=== PATIENT | male | born 1975 | race Caucasian/White ===

== ENCOUNTER 2019-07-27 13:10 | Emergency (ER) | payer MEDICAID ==
[~2019-07-27] VITALS: Ht 175.3 cm; Wt 99.8 kg
[2019-07-27] MEDS ORDERED: VENTOLIN HFA18 GM INH ×2 (13:23→13:34)
[2019-07-27 13:33] VITALS: BP 153/104
--- NOTE | 2019-07-27 13:33 | Emergency Room Report ---
History of Present Illness General Chief Complaint: Upper Respiratory Illness Source: Patient Present Illness HPI 44-year-old male with history of heavy tobacco smoke and asthma here with his friend complaining of worsening asthma, and 10 days of sinus pressure, sore throat. Patient recently moved to [place] from [place], and his friend is translating for me. Patient is requesting a refill of his Ventolin HFA. Also upon arrival has high blood pressure however denies chest pain, shortness of breath, dizziness, headache, palpitation, blurry vision. Reports that he has been told before that he has high blood pressure however has never taken medication for blood pressure. Denies any alcohol intake. Denies drug use. I educated patient that he needs to follow-up with her primary care provider, gave him a list of free clinics to go to establish a primary care physician in order to have complete blood work as well as starting medication for high blood pressure. Denies fever and chills at this time. Denies abdominal pain, nausea vomiting. Denies calf tenderness, pleuritic chest pain. Allergies: Coded Allergies: No Known Allergies (Unverified , 07/27/19) Patient History Past Medical History: see triage record Past Surgical History: none Pertinent Family History: none Social History: Reports: smoking - daily tobacco use Immunizations: UTD Reviewed Nursing Documentation: PMH: Agreed; PSxH: Agreed Nursing Documentation-PMH Past Medical History: No History, Except For Hx Hypertension: Yes Hx Asthma: Yes Review of Systems All Other Systems: negative except mentioned in HPI Physical Exam Vital Signs Date Time Temp Pulse Resp B/P (MAP) Pulse Ox O2 Delivery O2 Flow Rate FiO2 07/27/19 13:13 97.9 102 20 153/104 (120) 97 Room Air Sp02 EP Interpretation: reviewed, normal General Appearance: no apparent distress, alert, GCS 15, non-toxic Head: normocephalic, atraumatic Eyes: bilateral eye normal inspection, bilateral eye PERRL ENT: nasal congestion, tonsillar swelling, pharyngeal erythema, other - Frontal sinuses tender to palpation Neck: full range of motion, no meningismus, supple/symm/no masses Respiratory: chest non-tender, lungs clear, normal breath sounds, no rhonchi, no retraction, no wheezing, speaking full sentences Cardiovascular #1: regular rate, rhythm, no edema, no murmur, normal capillary refill Gastrointestinal: normal bowel sounds, non tender, soft, non-distended, no guarding, no rebound Rectal: deferred Genitourinary: no CVA tenderness Musculoskeletal: back normal, normal range of motion, no calf tenderness, pelvis stable, gait/station normal, non-tender Neurologic: alert, motor strength/tone normal, oriented x3, sensory intact, responsive, speech normal Psychiatric: judgement/insight normal, memory normal, mood/affect normal, no suicidal/homicidal ideation Skin: no rash Lymphatic: no adenopathy Medical Decision Making PA Attestation Diagnosis and treatment plans were reviewed and discussed with my supervising physician Dr. Pete Diagnostic Impression: Primary Impression: Asthma Additional Impressions: Sinusitis HTN (hypertension) ER Course 44-year-old male with history of heavy tobacco smoke and asthma here with his friend complaining of worsening asthma, and 10 days of sinus pressure, sore throat. Patient recently moved to [place] from [place], and his friend is translating for me. Patient is requesting a refill of his Ventolin HFA. Also upon arrival has high blood pressure however denies chest pain, shortness of breath, dizziness, headache, palpitation, blurry vision. Reports that he has been told before that he has high blood pressure however has never taken medication for blood pressure. Denies any alcohol intake. Denies drug use. I educated patient that he needs to follow-up with her primary care provider, gave him a list of free clinics to go to establish a primary care physician in order to have complete blood work as well as starting medication for high blood pressure. Denies fever and chills at this time. Denies abdominal pain, nausea vomiting. Denies calf tenderness, pleuritic chest pain. Ddx considered but are not limited to: strep pharyngitis, URI, tonsillitis, peritonsillar abscess, influneza, sinusitis, asthma exacerbation, bronchitis Vital signs: are WNL, pt. is afebrile H&PE are most consistent with: Asthma, sinusitis, incidental finding of hypertension ORDERS: Flonase, albuterol inhaler, Augmentin, no x-rays needed at this time patient is not wheezing and lungs are clear to auscultation denies any chest pain ED INTERVENTIONS: None required at this time. DISCHARGE: At this time pt. is stable for d/c to home. Will provide printed patient care instructions, and any necessary prescriptions. Care plan and follow up instructions have been discussed with the patient prior to discharge. I received a call from pharmacy that no inhalers are covered by patient's insurance and patient is a prior authorization. I informed the pharmacist that patient specifically asked for Ventolin HFA and also patient to pay for the prescription as he is an asthmatic and he needs his inhaler. Also he is a heavy tobacco smoker. I also informed the pharmacist that this is an emergency department and we do not request prior authorizations. Patient to follow-up with primary care provider for further assessment of hypertension and if worsening symptoms return to the emergency room. Patient's friend translated all of my concerns and recommendations and patient understood and agree with the above treatment Last Vital Signs Date Time Temp Pulse Resp B/P (MAP) Pulse Ox O2 Delivery O2 Flow Rate FiO2 07/27/19 13:13 97.9 102 20 153/104 (120) 97 Room Air Disposition: HOME, SELF-CARE Condition: Stable Scripts Albuterol Sulfate (VENTOLIN HFA) 18 Gm Hfa.aer.ad 2 PUFFS INH EVERY 6 HOURS, #18 GM 0 Refills Prov: Martin Damico 07/27/19 Fluticasone Propionate (Flonase Allergy Relief) 9.9 Ml [place].susp 2 PUFFS NS BID, #10 ML Prov: Martin Damico 07/27/19 Amoxicillin/Potassium Clav 875-125* (AUGMENTIN 875-125 TABLET*) 1 Each Tablet 1 TAB ORAL TWICE A DAY for 10 Days, #20 TAB Prov: Martin Damico 07/27/19 Patient Instructions: Asthma, Adult, [id number], Hypertension, [id number], Sinusitis, Adult, [id number] Additional Instructions: Take medication as directed, follow-up with your primary care provider, you need to manage her hypertension, proper blood work to be ordered by primary care physician and follow-up to be done by primary care physician. If worsening symptoms return to the emergency room Martin Damico Jul 27, 2019 13:33
[2019-07-27] MEDS ORDERED: AUGMENTIN 875-1 EAC1 ORAL (13:34)
[2019-07-27] MEDS ORDERED: FLONASE ALLERG9.9 ML NS (13:34)
--- NOTE | 2019-07-27 13:40 | NUR ---
ER DISCHARGE NOTE: Patient is cleared to be discharged per ERMD, pt is aox4, on room air, with stable vital signs. pt was given dc and prescription instructions, pt was able to verbalize understanding, pt is able to ambulate with steady gait. pt took all belongings.
[2019-07-27 13:43] VITALS: BP 153/104
== END 2019-07-27 14:30 | disposition home or self-care (01) ==
LOC: EMR 14:13
DX: J45.909 Unspecified asthma, uncomplicated (principal); J32.9 Chronic sinusitis, unspecified; I10 Essential (primary) hypertension; Z87.891 Personal history of nicotine dependence
CPT/HCPCS: 99282

== ENCOUNTER 2019-08-23 14:00 | Emergency (ER) | payer MEDICAID ==
[~2019-08-23] VITALS: Ht 167.6 cm; Wt 72.6 kg
[~2019-08-23 14:00] MED LIST: AUGMENTIN 875-1 EAC1 ORAL; FLONASE ALLERG9.9 ML NS; VENTOLIN HFA18 GM INH
[2019-08-23 14:10] VITALS: BP 142/91
--- NOTE | 2019-08-23 14:26 | NUR ---
ED Nurse Note: Pt walked in from where he is staying on vacation to refill his albuterol prescription. Pt is out of town and [place] the [place] and ran out of his inhaler. Respirations even and unlabored on room air. Vital signs stable as documented.
--- NOTE | 2019-08-23 14:28 | Emergency Room Report ---
History of Present Illness General Chief Complaint: Medication Refill Source: Patient Present Illness HPI 44-year-old male presents to the emergency department requesting medication refill for his albuterol inhaler. Patient moved here from [place] 1 month ago and he is still waiting for his insurance to kick in so he can have a primary care provider. He denies wheezing he denies shortness of breath, CP, palpitations, dyspnea, increase use of his inhaler, cough, fevers or chills. Patient reports he is almost out. He denies any other symptoms at this time. He denies pain. Allergies: Coded Allergies: No Known Allergies (Unverified , 07/27/19) Patient History Past Medical History: see triage record Past Surgical History: none Pertinent Family History: none Reviewed Nursing Documentation: PMH: Agreed; PSxH: Agreed Nursing Documentation-PMH Past Medical History: No History, Except For Hx Hypertension: Yes Hx Asthma: Yes Review of Systems All Other Systems: negative except mentioned in HPI Physical Exam Vital Signs Date Time Temp Pulse Resp B/P (MAP) Pulse Ox O2 Delivery O2 Flow Rate FiO2 08/23/19 14:04 98.4 98 16 142/91 (108) 96 Room Air Sp02 EP Interpretation: reviewed, normal General Appearance: no apparent distress, alert, GCS 15, non-toxic Head: normocephalic, atraumatic Eyes: bilateral eye normal inspection, bilateral eye PERRL ENT: hearing grossly normal, normal voice Neck: full range of motion Respiratory: chest non-tender, lungs clear, normal breath sounds, speaking full sentences Cardiovascular #1: regular rate, rhythm, no edema Musculoskeletal: normal range of motion, gait/station normal, non-tender Neurologic: alert, motor strength/tone normal, oriented x3, sensory intact, responsive, speech normal Psychiatric: judgement/insight normal Medical Decision Making PA Attestation Dr. Lux Is my supervising Physician whom patient management has been discussed with. Diagnostic Impression: Primary Impression: Encounter for medication refill ER Course 44-year-old male presents to the emergency department requesting medication refill for his albuterol inhaler. Patient moved here from [place] 1 month ago and he is still waiting for his insurance to kick in so he can have a primary care provider. He denies wheezing he denies shortness of breath, CP, palpitations, dyspnea, increase use of his inhaler, cough, fevers or chills. Patient reports he is almost out. He denies any other symptoms at this time. He denies pain. Ddx considered but are not limited to asthma exacerbation, CHF, URI, pneumonia, PE, strep pharyngitis, meningitis. Vital signs: Pt. is afebrile, VS are WNL H&PE are most consistent with medication refill request. ORDERS: none required at this time, the diagnosis is clinical ED INTERVENTIONS: none required at this time. DISCHARGE: At this time pt. is stable for d/c to home. Will provide printed patient care instructions, and any necessary prescriptions. Care plan and follow up instructions have been discussed with the patient prior to discharge. Last Vital Signs Date Time Temp Pulse Resp B/P (MAP) Pulse Ox O2 Delivery O2 Flow Rate FiO2 08/23/19 14:04 98.4 98 16 142/91 (108) 96 Room Air Disposition: HOME, SELF-CARE Condition: Stable Scripts Albuterol Sulfate* (ALBUTEROL SULFATE MDI*) 8.5 Gm Hfa.aer.ad 2 PUFF INH Q3H, #1 INH 1 Refill Prov: Cris Saldana 08/23/19 Patient Instructions: Medicine Refill at the Emergency Department Additional Instructions: Take medications as directed. Follow up with a Primary Care Provider in 3-5 days, even if your symptoms have resolved. --Please review list of primary care clinics, if you do not already have a primary care provider Return sooner to ED if new symptoms occur, or current symptoms become worse. - Please note that this Emergency Department Report was dictated using [employer] stamping machine operator technology software, occasionally this can lead to erroneous entry secondary to interpretation by the dictation equipment. Cris Saldana Aug 23, 2019 14:28
[2019-08-23] MEDS ORDERED: ALBUTEROL SULF8.5 GM INH (14:52)
--- NOTE | 2019-08-23 14:57 | NUR ---
ER DISCHARGE NOTE: Patient is cleared to be discharged per ERMD, pt is aox4, on room air, with stable vital signs as documented. pt was given dc and prescription instructions and able to verbalize understanding, pt id band removed. pt is able to ambulate with steady gait. pt taking all belongings.
[2019-08-23 14:58] VITALS: BP 139/84
== END 2019-08-23 14:59 | disposition home or self-care (01) ==
LOC: EMR 14:40
DX: Z76.0 Encounter for issue of repeat prescription (principal); J45.909 Unspecified asthma, uncomplicated; I10 Essential (primary) hypertension
CPT/HCPCS: 99282

== ENCOUNTER 2019-10-21 08:36 | Emergency (ER) | payer MEDICAID ==
[~2019-10-21] VITALS: Ht 167.6 cm; Wt 104.3 kg
[~2019-10-21 08:36] MED LIST changes: +ALBUTEROL SULF8.5 GM INH
[2019-10-21] MEDS ORDERED: ALBUTEROL SULF8.5 GM INH (08:48)
[2019-10-21] MEDS ORDERED: FLONASE ALLERG9.9 ML NS (08:48)
--- NOTE | 2019-10-21 08:49 | Emergency Room Report ---
History of Present Illness General Chief Complaint: Medication Refill Source: Patient Present Illness HPI 44-year-old male history of asthma presents for albuterol and fluticasone refill no aggravating relieving factors no severity patient has no other complaints patient presents for refills only Allergies: Coded Allergies: No Known Allergies (Unverified , 07/27/19) Patient History Past Medical History: see triage record Social History: Reports: smoking Reviewed Nursing Documentation: PMH: Agreed; PSxH: Agreed Nursing Documentation-PMH Hx Hypertension: Yes Hx Asthma: Yes Review of Systems All Other Systems: negative except mentioned in HPI Physical Exam Vital Signs Date Time Temp Pulse Resp B/P (MAP) Pulse Ox O2 Delivery O2 Flow Rate FiO2 10/21/19 08:39 97.9 93 16 139/87 (104) 96 Room Air General Appearance: well appearing, no apparent distress Head: normocephalic, atraumatic Eyes: bilateral eye PERRL, bilateral eye EOMI ENT: hearing grossly normal, normal voice Neck: full range of motion, supple Respiratory: no respiratory distress, speaking full sentences Neurologic: alert, normal gait Psychiatric: mood/affect normal Skin: no rash Medical Decision Making Diagnostic Impression: Primary Impression: Encounter for medication refill ER Course 44-year-old male presents for medication refill will refill medications and discharge patient Last Vital Signs Date Time Temp Pulse Resp B/P (MAP) Pulse Ox O2 Delivery O2 Flow Rate FiO2 10/21/19 08:39 97.9 93 16 139/87 (104) 96 Room Air Disposition: HOME, SELF-CARE Condition: Stable Scripts Albuterol Sulfate* (ALBUTEROL SULFATE MDI*) 8.5 Gm Hfa.aer.ad 2 PUFF INH Q4H PRN for Shortness of Breath, #1 EA 3 Refills Prov: Gasper Pete MD 10/21/19 Fluticasone Propionate (Flonase Allergy Relief) 9.9 Ml [place].susp 2 PUFFS NS BID, #10 ML Prov: Gasper Pete MD 10/21/19 Referrals: [facility] Patient Instructions: Medicine Refill at the Emergency Department Additional Instructions: The patient was provided with discharge instructions, notified to follow-up with a primary care doctor and or specialist in the next 24-48 hours, and to return to the ED if they have worsening of their symptoms. Please note that this report is being documented using DRAGON technology. This can lead to erroneous entry secondary to incorrect interpretation by the dictating instrument. Gasper Pete MD Oct 21, 2019 08:49
[2019-10-21 08:50] VITALS: BP 139/87
[2019-10-21 08:52] VITALS: BP 139/87
--- NOTE | 2019-10-21 08:52 | NUR ---
ER DISCHARGE NOTE: Patient is cleared to be discharged per ERMD, pt is aox4, on room air, with stable vital signs. pt was given dc and prescription instructions, pt was able to verbalize understanding, pt id band removed. pt is able to ambulate with steady gait. pt took all belongings.
== END 2019-10-21 08:52 | disposition home or self-care (01) ==
LOC: EMR 08:52
DX: Z76.0 Encounter for issue of repeat prescription (principal); I10 Essential (primary) hypertension; F17.200 Nicotine dependence, unspecified, uncomplicated
CPT/HCPCS: 99282